=== PATIENT | male | born 1975 | race Caucasian/White ===

== ENCOUNTER 2018-07-08 21:13 | Emergency (ER) | payer SELFPAY ==
[~2018-07-08] VITALS: Ht 198.1 cm; Wt 74.8 kg
[2018-07-08 23:00] VITALS: BP 107/72
[2018-07-08] MEDS ORDERED: DIPHTH,PERTUSS(ACELL),TET TOX 0.5 ML DISP.SYRIN. VAX IM ONE (23:00)
[2018-07-08] MEDS ORDERED: LIDOCAINE 2% PF 2ML VIAL. INJ ONE (23:00)
[2018-07-08] MEDS ORDERED: LIDOCAINE 2% 20 ML VIAL. INJ ONE (23:00)
--- NOTE | 2018-07-08 23:28 | PHYS DOC ---
Past Medical History Past Medical History: No Pertinent History Additional Past Medical Histor: PT DENIES MED HX, STATES HE HAS NOT BEEN TO A DR IN YEARS Past Surgical History: No Surgical History Additional Information: 1/2 PACK Alcohol Use: None Drug Use: None Adult General Chief Complaint Chief Complaint: MECHANICAL FALL HPI HPI Patient is a 42 year old male who presents with loss of consciousness after seeing blood from a left hand laceration. Reported witnessed seizure-like activity after falling backward and hitting his head. Denies loss of bowel or bladder function, no tongue bite. Denies headache or vision changes. Denies any seizure history. He currently feels fine he has never had this happen to him before he has no medical problems.[] Review of Systems Review of Systems Constitutional: Denies fever or chills [] Eyes: Denies change in visual acuity, redness, or eye pain [] HENT: Denies nasal congestion or sore throat [] Cardiovascular: No additional information not addressed in HPI [] GI: Denies abdominal pain, nausea, vomiting, bloody stools or diarrhea [] Integument: laceration on left palm [] Neurologic: Denies headache, focal weakness or sensory changes []negative for numbness in the thumb Endocrine: Denies polyuria or polydipsia [] All other systems were reviewed and found to be within normal limits, except as documented in this note. Current Medications Current Medications Current Medications Medications (Trade) Dose Ordered Sig/Daniela Start Time Stop Time Status Last Admin Dose Admin Diphtheria/ Tetanus/Acell Pertussis (Boostrix) 0.5 ml ONCE ONCE 07/08/18 23:00 07/08/18 23:01 DC Lidocaine HCl 10 ml 1X ONCE 07/08/18 23:00 07/08/18 23:01 DC Lidocaine HCl (Xylocaine-Mpf 2% Vial) 10 ml 1X ONCE 07/08/18 23:00 07/08/18 23:00 DC Allergies Allergies Allergies Coded Allergies Type Severity Reaction Last Updated Verified No Known Drug Allergies 07/08/18 No Physical Exam Physical Exam Constitutional: Well developed, well nourished, no acute distress, non-toxic appearance. [] HENT: Normocephalic, atraumatic, bilateral external ears normal, tympanic membranes intact, oropharynx moist, no oral exudates, nose normal. [] Eyes: PERRLA, EOMI, conjunctiva normal, no discharge. [] Neck: Normal range of motion, no tenderness, supple, no stridor. [] Cardiovascular:Heart rate regular rhythm, no murmur [] Lungs & Thorax: Bilateral breath sounds clear to auscultation [] Abdomen: Bowel sounds normal, soft, no tenderness, no masses, no pulsatile masses. [] Skin: 1 cm laceration to left thenar eminence, warm, dry, no erythema, no rash. [] No foreign body was seen there is no tendon injury seen. Sensation against resistance and with light touch respectively in the affected thumb Back: No tenderness, no CVA tenderness. [] Extremities: No tenderness, no cyanosis, no clubbing, ROM intact, no edema. [] Neurologic: Alert and oriented X 3, normal motor function, normal sensory function, no focal deficits noted. [] Psychologic: Affect normal, judgement normal, mood normal. [] Current Patient Data Vital Signs Vital Signs Date Time Temp Pulse Resp B/P (MAP) Pulse Ox O2 Delivery O2 Flow Rate FiO2 07/08/18 22:30 72 17 97 07/08/18 21:15 98.7 114/67 (83) Room Air 98.7 EKG EKG [] Interpretation Time: EKG shows a normal sinus rhythm with a rate of 70 QRS is 98 no obvious ischemic changes were noted. No LVH no Brugada no arrhythmic genic RVD SEEN Radiology/Procedures Radiology/Procedures [] Course & Med Decision Making Course & Med Decision Making Patient is a 42 year old male with no past medical history presents with symptoms consistent with vasovagal syncope after sight of blood and left thenar eminence laceration approximately 1 cm. No focal neurologic deficits. Denies headache or vision changes. [place] CT head rule negative. Pertinent Labs and Imaging studies reviewed. (See chart for details) Plan suture x4 of left thenar eminence laceration Discussed with the patient CT not necessary he is in agreement with this. TMs were clear no signs of basal skull fracture negative negative head CT rule as noted above. Procedure note: Performed by XIOMY MAYNARD verbal consent was obtained the wound was irrigated no foreign body was identified it was closed with 4 nylon simple interrupted sutures with excellent skin approximation patient tolerated well and was given wound precautions tetanus was updated as well. [] HX DOES NOT SOUND CARDIAC OR NEUYROLOGIC AT ALL, HE IS ASYMPTOAMTIC NOW. Dragon Disclaimer Dragon Disclaimer This electronic medical record was generated, in whole or in part, using a voice recognition dictation system. Departure Departure Impression: Primary Impression: Laceration Disposition: 01 HOME, SELF-CARE Condition: STABLE Referrals: NO PCP (PCP) FREDDIE AVALOS MD Jul 08, 2018 23:28
--- NOTE | 2018-07-09 14:56 | EKG ---
[facility] [address] [place] [address] Test Date: 2018-07-08 Test Time: 23:13:32 Pat Name: IVA AVINA Department: Room: Gender: Demolition Worker: : 1975 Requested By: FREDDIE AVALOS Order Number: [id number] Reading MD: Luther Mckinney Measurements Intervals [place] Rate: P: PA: QRS: QRSD: T: QT: QTc: Interpretive Statements No previous ECG available for comparison Electronically Signed On 07-11-2018 9:05:05 [employer]BILE EQU[employer]MENT [employer]PER[employer] by Luther Mckinney
== END 2018-07-08 23:40 | disposition home or self-care (01) ==
LOC: ER 21:13
DX: S61.412A Laceration without foreign body of left hand, initial encounter (principal); F17.200 Nicotine dependence, unspecified, uncomplicated; R55 Syncope and collapse; W18.39XA Other fall on same level, initial encounter; Y93.89 Activity, other specified; Y92.89 Other specified places as the place of occurrence of the external cause; Y99.8 Other external cause status
CPT/HCPCS: 12001; 90471; 90715; 93005; 99283